=== PATIENT | female | born 1990 | race Caucasian/White ===

== ENCOUNTER 2023-04-22 16:00 | Outpatient (OUT) | payer BC, SELFPAY ==
[2023-04-22 16:34] LABS: Basophils Percent Auto 0.2 % (0.2-2.0); Eosinophils Absolute Auto 0.1 10^3/uL (0.0-0.7); Eosinophils Percent Auto 0.6 % (0.9-7.0); Hemoglobin 14.8 g/dL (12.0-16.0); Immature Granulocytes Abs Auto 0.02 10^3/uL (0.00-0.03); Immature Granulocytes Pct Auto 0.2 % (0.0-0.5); Lymphocytes Absolute Auto 2.9 10^3/uL (1.2-3.8); Mean Corpuscular HGB Conc 35.2 g/dL (29.9-35.2); Mean Corpuscular Hemoglobin 30.3 pg (26.7-34.0); Mean Corpuscular Volume 85.9 fL (81.0-99.0); Mean Platelet Volume 9.3 fL (9.5-13.5); Monocytes Absolute Auto 0.5 10^3/uL (0.3-0.8); Monocytes Percent Auto 6.1 % (1.7-12.0); Neutrophils Absolute Auto 4.7 10^3/uL (1.4-6.5); Neutrophils Percent Auto 57.9 % (43.0-75.0); Platelet Count 275 10^3/uL (150-450); Red Blood Count 4.89 10^6/uL (4.20-5.40); Red Cell Distribution Width 11.7 % (11.0-15.0); White Blood Count 8.2 10^3/uL (4.0-11.0)
[2023-04-22 17:05] LABS: HCG Quantitative <1 mIU/mL; Thyroid Stimulating Hormone 1.761 uIU/mL (0.358-3.740)
[2023-04-22 17:17] LABS: Estimated Average Glucose 97 mg/dL
[2023-04-22 17:18] LABS: Free T4 0.93 ng/dL (0.76-1.46)
[2023-04-24 04:07] LABS: FSH 6.3 mIU/mL (.); Luteinizing Hormone(LH) 3.5 mIU/mL (.)
[2023-04-27 15:09] LABS: Anti-Mullerian Hormone (AMH) 0.526 ng/mL (.)
[2023-04-28 14:07] LABS: DHEA, Serum 289 ng/dL (31-701)
== END 2023-04-22 16:01 | disposition home or self-care (01) ==
LOC: LAB 16:04
PROVIDERS: PCP Family Medicine; Visit Provider Obstetrics & Gynecology
DX: N92.6 Irregular menstruation, unspecified (principal); N92.1 Excessive and frequent menstruation with irregular cycle; G43.009 Migraine without aura, not intractable, without status migrainosus
CPT/HCPCS: 36415; 82626; 82627; 83001; 83002; 83036; 84439; 84443; 84702; 85025

== ENCOUNTER 2023-04-30 13:13 | Outpatient (OUT) | payer BC, SELFPAY ==
--- NOTE | 2023-04-30 12:50 | US_ITS ---
The [address] [address] Patient Name: LUIS PLATT MRN: [id number] date: 1990 Sex: F Assigned Patient Location: US Current Patient Location: US Accession/Order Number: [id number] Exam Date: 04/30/2023 12:50 Report Date: 04/30/2023 14:48 At the request of: LEMUEL JOHNSON Procedure: US pelvis w/ transvaginal EXAM: US pelvis w/ transvaginal HISTORY: PELVIC PAIN COMPARISON: None. TECHNIQUE: Real-time transabdominal and transvaginal imaging of the pelvis. Findings: The uterus measures 8.9 x 4.4 x 5.6 cm. Unremarkable parenchymal echotexture. No intrauterine mass. The endometrium is 0.8 cm thick. No fluid within the endometrial canal. The right and left ovaries measure 2.6 x 1.8 x 2.4 and 11.3 x 0.7 x 2.0 cm. There are unremarkable bilaterally. Blood flow is identified. No adnexal mass or free pelvic fluid. US/US pelvis w/ transvaginal IMPRESSION: 1. Unremarkable sonographic appearance of the pelvis for age. Electronically authenticated by: TATA NAVA Date: 04/30/2023 14:48
== END 2023-04-30 13:14 | disposition home or self-care (01) ==
LOC: US 13:13
PROVIDERS: PCP Family Medicine; Visit Provider Obstetrics & Gynecology
DX: N92.1 Excessive and frequent menstruation with irregular cycle (principal)
CPT/HCPCS: 76830; 76856

== ENCOUNTER 2023-05-29 21:17 | Outpatient (REF) | payer BC, SELFPAY ==
[2023-06-04 14:09] LABS: Age Gdln ACOG Testing Note (.); HPV Aptima Negative (Negative); IGP, Aptima HPV, rfx 16/18,45 Note (.)
== END 2023-05-29 21:18 | disposition home or self-care (01) ==
LOC: LAB 21:17
PROVIDERS: PCP Family Medicine; Visit Provider Physician Assistant
DX: Z12.4 Encounter for screening for malignant neoplasm of cervix (principal)
CPT/HCPCS: 87624; G0145

== ENCOUNTER 2023-05-30 14:58 | Outpatient (OUT) | payer BC, SELFPAY ==
[2023-06-01 05:05] LABS: Progesterone 2.4 ng/mL (.)
== END 2023-05-30 14:59 | disposition home or self-care (01) ==
LOC: LAB 14:59
PROVIDERS: PCP Family Medicine; Visit Provider Obstetrics & Gynecology
DX: N97.0 Female infertility associated with anovulation (principal)
CPT/HCPCS: 36415; 84144

== ENCOUNTER 2023-06-22 08:00 | Outpatient (OUT) | payer BC, SELFPAY | END 2023-06-22 08:01 | disposition home or self-care (01) | PROVIDERS: PCP Family Medicine; Visit Provider Obstetrics & Gynecology | DX: N97.9 Female infertility, unspecified (principal) | CPT/HCPCS: 36415; 84144 ==

== ENCOUNTER 2023-07-17 09:18 | Outpatient (OUT) | payer BC, SELFPAY | END 2023-07-17 09:19 | disposition home or self-care (01) | LOC: LAB 09:19 | PROVIDERS: PCP Family Medicine; Visit Provider Obstetrics & Gynecology | DX: N97.9 Female infertility, unspecified (principal) | CPT/HCPCS: 36415; 84144 ==

== ENCOUNTER 2023-08-13 08:03 | Outpatient (OUT) | payer BC, SELFPAY ==
[2023-08-14 09:11] LABS: Progesterone 6.7 ng/mL (.)
== END 2023-08-13 08:04 | disposition home or self-care (01) ==
LOC: LAB 08:04
PROVIDERS: PCP Family Medicine; Visit Provider Obstetrics & Gynecology
DX: N97.9 Female infertility, unspecified (principal)
CPT/HCPCS: 36415; 84144

== ENCOUNTER 2023-09-04 08:08 | Outpatient (OUT) | payer BC, SELFPAY ==
[2023-09-05 04:10] LABS: Progesterone 37.6 ng/mL (.)
== END 2023-09-04 08:09 | disposition home or self-care (01) ==
LOC: LAB 08:08
PROVIDERS: PCP Family Medicine; Visit Provider Obstetrics & Gynecology
DX: N97.9 Female infertility, unspecified (principal)
CPT/HCPCS: 36415; 84144

== ENCOUNTER 2023-10-02 08:42 | Outpatient (OUT) | payer BC, SELFPAY ==
--- OUTSIDE RECORDS SUMMARY | 2023-10-02 08:45 | XMS_ITS | CCD ---
Author Name Unknown Address [address] [facility] [address] [place] [address] Organization [facility] Care Team Providers Care Author Agent Name Role Phone ELIZABETH, DR HDEZ Attending Unavailable ELIZABETH, DR HDEZ Consulting Unavailable ELIZABETH, DR HDEZ Admitting Unavailable SRIKANTH, DR RACH Wadsworth Primary Care Unavailable SRIKANTH, DR RACH Wadsworth Attending Unavailable SRIKANTH, DR RACH Wadsworth Consulting Unavailable SRIKANTH, DR RAHC Wadsworth Primary Care Unavailable SRIKANTH, DR RACH Wadsworth Admitting Unavailable MD Rach Shen Primary Care Provider [phone] DO Leon Casey Attending Provider [phone] Leon Casey Attending Unavailable Leon Casey Admitting Unavailable Rach Shen Primary Care Unavailable Problems Active Problems Problem Classification Problem Date Documented Da te Episodic/Chronic Unclassified (2 sources) CONTACT W/AND (SUSP) EXPOS COVID-19; Translations: [CONTACT W/AND (SUSP) EXPOS COVID-19] Onset: 10-19-2021 Unclassified (1 source) Contact with and (suspected) exposure to potentially hazardous body fluids; Translations: [Contact with and (suspected) exposure to potentially hazardous body fluids] Onset: 04-25-2023 Viral infection (1 source) COVID-19; Translations: [COVID-19] Onset: 10-19-2021 Past or Other Problems Problem Classification Problem Date Documented Date Episodic/Chronic Immunizations and screening for infectious disease (1 source) Encounter for screening for human papillomavirus (HPV); Translations: [ENC SCREENING HUMAN PAPILLOMAVIRUS] Onset: 11-29-2021 Episodic Other screening for suspected conditions (not mental disorders or infectious disease) (4 sources) Encounter for screening for malignant neoplasm of cervix; Translations: [ENC SCREENING MALIG NEOPLASM CERV] Onset: 11-28-2021 Episodic Unclassified (1 source) CONTACT W/AND (SUSP) EXPOS COVID-19; Translations: [CONTACT W/AND (SUSP) EXPOS COVID-19] Onset: 10-17-2021 Results Test Name Value Interpretation Reference Range Facility Alanine Aminotransferaseon 0 04-25-2023 ALT [Catalytic activity/Vol] 17 U/L Normal [facility] Comment on above: Order Comment: Which is this, the Source or the Person with the Exposure?: EXPOSURE Source Medical Record: [id number] Exposed Result Comment: PERF ORMED BY: [place] [address] LIGHT LAMP CLEANER OSVALDO CRYSTAL M.D. Performed By: #### A LT #### [address] #### HIV SCREEN, HCV RX PCR, HBSAB, HBSAG #### [facility] , Alanine aminotransferase [En zymatic activity/volume] in Serum or PlasmaOrdered By: Leon Casey on 04-25-2023 ALT [Catalytic activity/Vol] 17 U/L [facility] HIV 1/O/2 Antigen/Antibodyon 04-25-2023 HIV Screen 4th Generation Non-Reactive Normal Non Reactive [facility] Comment on above: Order Comment: Which is this, the Source or the Person with the Exposure?: EXPOSURE Source Medical Record: [id number] Exposed Result Comment: HIV Negative HIV-1/HIV-2 antibodies and HIV-1 p24 antigen were NOT detected. There is no laboratory evidence of HIV infection. PERFORMED BY: [place] [address] LIGHT LAMP CLEANER OSVALDO CRYSTAL M.D. Performed By: #### A LT #### [facility] [address] [place] [address] [place] #### HIV SCREEN, HCV RX PCR, HBSAB, HBSAG #### [facility] , Hep C Ab wRfx to Qnt PCRon 0 04-25-2023 Hepatitis C Virus Antibody Non-Reactive Normal Non Reactive [facility] Comment on above: Order Comment: Which is this, the Source or the Person with the Exposure?: EXPOSURE Source Medical Record: [id number] Exposed Performed By: #### A LT #### [address] #### HIV SCREEN, HCV RX PCR, HBSAB, HBSAG #### [facility] , Interpretation Hepatitis C Normal . [facility] Comment on above: Order Comment: Which is this, the Source or the Person with the Exposure?: EXPOSURE Source Medical Record: [id number] Exposed Result Comment: Not infected with HCV unless early or acute infection is suspected (which may be delayed in an immunocompromised individual), or other evidence exists to indicate HCV infection. Performed By: #### A LT #### [place] [address] [place] #### HIV SCREEN, HCV RX PCR, HBSAB, HBSAG #### [facility] , Hepatitis B Surface Antibody on 04-25-2023 Hepatitis B Surface Antibody Reactive Normal . [facility] Comment on above: Order Comment: Which is this, the Source or the Person with the Exposure?: EXPOSURE Source Medical Record: [id number] Exposed Result Comment: Non Reactive: Inconsistent with immunity, less than 10 mIU/mL Reactive: Consistent with immunity, greater than 9.9 mIU/mL Performed By: #### A LT #### [place] [address] [place] #### HIV SCREEN, HCV RX PCR, HBSAB, HBSAG #### [facility] , Hepatitis B Surface Antigeno n 04-25-2023 HBsAg Screen Negative Normal Negative [facility] Comment on above: Order Comment: Which is this, the Source or the Person with the Exposure?: EXPOSURE Source Medical Record: [id number] Exposed Result Comment: Perf ormed at: - [facility] [address] [id number] Batter Mixer: Shai Marie PhD, Phone: [phone] Performed By: #### A LT #### [facility] [address] #### HIV SCREEN, HCV RX PCR, HBSAB, HBSAG #### [facility] , PAP ONLYon 12-05-2021 . . Normal [facility] Comment on above: Performed By: #### 4 [id number] #### [facility] [address] [place] [address] Dr. Vargas Joe DIAGNOSIS: Comment [facility] Comment on above: Result Comment: NEGA TIVE FOR INTRAEPITHELIAL LESION OR MALIGNANCY. Performed By: #### 4 [id number] #### [facility] [address] [place] [address] Dr. Vargas Joe Methodology: Comment [facility] Comment on above: Result Comment: This liquid based ThinPrep(R) pap test was screened with the use of an image guided system. Performed By: #### 4 [id number] #### [facility] [address] [place] [address] Dr. Vargas Joe Note: Comment [facility] Comment on above: Result Comment: The Pap smear is a screening test designed to aid in the detection of premalignant and malignant conditions of the uterine cervix. It is not a diagnostic procedure and should not be used as the sole means of detecting cervical cancer. Both false-positive and false-negative reports do occur. . Performed By: #### 4 [id number] #### [facility] [address] [place] [address] Dr. Vargas Joe Performed by: Comment Normal [facility] Comment on above: Result Comment: Denise Medellin, Historiography Professor (ASCP) Performed By: #### 4 [id number] #### [facility] [address] [place] [address] Dr. Vargas Joe Specimen adequacy: Comment [facility] Comment on above: Result Comment: Sati sfactory for evaluation. Endocervical and/or squamous metaplastic cells (endocervical component) are present. Performed By: #### 4 [id number] #### [facility] [address] [place], [place] [address] Dr. Vargas Joe Covid-19 PCR (CVDTB)on 09-24 SARS-CoV-2 (COVID-19) RNA LILIANA+probe Ql (Unsp spec) Detected Critically abnormal NOT DETECTED [facility] Comment on above: Result Comment: This test is not yet approved or cleared by the [place] FDA. When there are no FDA-approved or cleared tests available, and other criteria are met, FDA can make tests available under an emergency access mechanism called an Emergency Use Authorization (EUA). The EUA for this test is supported by the Document Management Consultant of Health and Human Service's (HHS's) declaration that circumstances exist to justify the emergency use of in vitro diagnostics for the detection and/or diagnosis of the virus that causes COVID-19. This EUA will remain in effect (meaning this test can be used) for the duration of the COVID-19 declaration justifying emergency of IVDs, unless it is terminated or revoked by FDA (after which the test may no longer be used). Performed By: #### C VDTB #### [facility] [address] [address] [address] Vargas Joe Auth for Release of Medical Recordson 03-10-2020 Auth for Release of Medical Records [id number] .[id number]:127 Normal [facility] Encounters Encounter Date Encounter Type Care Provider Facility Start: 04-25-2023 End: 04-25-2023 ambulatory MD Rach Shen Work Phone: [facility] Work Phone: Start: 04-25-2023 End: 04-25-2023 Patient encounter procedure MD Rach Shen Work Phone: [facility] [address] Work Phone: Start: 11-28-2021 End: 11-28-[address] LEMUEL JOHNSON Facility:H1 Start: 10-17-2021 End: 10-17-[address] RACH SHEN Facility:H1 Plan of Treatment Date Care Activity Detail Author Start: 04-25-2023 [facility] Payers Date Payer Category Payer Self-pay 2023 Worker's Compensation [id number] 1990 Unknown [id number] 1990 Unknown [id number] 1960 Unknown [id number] Unknown [id number] [id number] Social History Date Type Detail Facility Tobacco smoking stat [facility] Unknown if ever smoked [facility] Work Phone: Start: 1990 Sex Assigned At Female F [facility] Evaluation note Note Date & Type Note Facility Evaluation note No assessment information availa ble [facility] Work Phone: Summary Purpose Family History No Family History Records FoundNo Family History Records FoundNo Family History Records Found Advance Directives No Advanced Directives Records Found Advance Directive Response Recorded Date/ Time Advance Directives No April 25 023 12:07pm Chief Complaint and Reason for Visit Chief Complaint exposure Additional Source Comments INFORMATION SOURCE (unrecogn ized section and content) DATE CREATED AUTHOR 03/10/2020 [facility] DATE CREATED AUTHOR AUTHOR'S ORGANIZ ATION 09/13/2022 [facility] DATE CREATED AUTHOR AUTHOR'S ORGANIZ ATION 09/14/2023 [facility] Care Teams (unrecognized sec tion and content) Team Status: Active Member Role Status Dates Rach Shen MD Primary Care Provider Active Team Status: Inactive Member Role Status Dates Rach Shen MD Primary Care Provider Active DO GARY Larios Attending Provider Active Goals (unrecognized section and content) Goals may be documented in a n alternate section FOR RECORDS PERTAINING TO PATIENTS WHO ARE OR HAVE BEEN ENROLLED IN A CHEMICAL DEPENDENCY/SUBSTANCEABUSE PROGRAM, SOME INFORMATION MAY BE OMITTED. This clinical summary was aggregated from multiple sources. Caution should be exercised in using it in the provision of clinical care. This summary normalizes information from multiple sources, and as a consequence, information in this document may materially change the coding, format and clinical context of patient data. In addition, data may be omitted in some cases. CLINICAL DECISIONS SHOULD BE BASED ON THE PRIMARY CLINICAL RECORDS. [employer] provides no warranty or guarantee of the accuracy or completeness of information in this document.
[2023-10-03 04:07] LABS: Progesterone 25.3 ng/mL (.)
== END 2023-10-02 08:43 | disposition home or self-care (01) ==
LOC: LAB 08:43
PROVIDERS: PCP Family Medicine; Visit Provider Obstetrics & Gynecology
DX: N97.9 Female infertility, unspecified (principal)
CPT/HCPCS: 36415; 84144

== ENCOUNTER 2023-10-14 07:36 | Day surgery (SDC) | payer BC, SELFPAY ==
--- OUTSIDE RECORDS SUMMARY | 2023-10-14 07:38 | XMS_ITS | CCD ---
Author Name Unknown Address [address] [facility] [address] [place] [address] Organization [facility] Care Team Providers Care Information Technology Internship Name Role Phone ELIZABETH, DR HDEZ Attending Unavailable ELIZABETH, DR HDEZ Consulting Unavailable ELIZABETH, DR HDEZ Admitting Unavailable SRIKANTH, DR RACH Wadsworth Primary Care Unavailable SRIKANTH, DR RACH Wadsworth Attending Unavailable SRIKANTH, DR RACH Wadsworth Consulting Unavailable SRIKANTH, DR RACH Wadsworth Primary Care Unavailable SRIKANTH, DR RACH Wadsworth Admitting Unavailable MD Rach Shen Primary Care Provider DO Leon Casey Attending Provider [phone] Leon Casey Attending Unavailable Leon Casey Admitting [...] 04-25-2023 ALT [Catalytic activity/Vol] 17 U/L Normal [facility] Comment on above: Order Comment: Which is this, the Source or the Person with the Exposure?: EXPOSURE Source Medical Record: [id number] Exposed Result Comment: PERF ORMED BY: [place] [address] PATHOLOGIST FELLED SEAM OPERATOR OSVALDO CRYSTAL M.D. Performed By: #### A LT #### [address] #### HIV SCREEN, HCV RX PCR, HBSAB, HBSAG #### [facility] , Alanine aminotransferase [En zymatic activity/volume] in Serum or PlasmaOrdered By: Leon Casey on 04-25-2023 ALT [Catalytic activity/Vol] 17 U/L [facility] HIV 1/O/2 Antigen/Antibodyon 04-25-2023 HIV Screen 4th Generation Non-Reactive Normal Non Reactive [facility] Comment on above: Order Comment: Which is this, the Source or the Person with the Exposure?: EXPOSURE Source Medical Record: [id number] Exposed Result Comment: HIV Negative HIV-1/HIV-2 antibodies and HIV-1 p24 antigen were NOT detected. There is no laboratory evidence of HIV infection. PERFORMED BY: [place] [address] PATHOLOGIST FELLED SEAM OPERATOR OSVALDO CRYSTAL M.D. Performed By: #### A LT #### [facility] [address] [place] [address] [place] #### HIV SCREEN, HCV RX PCR, HBSAB, HBSAG #### [facility] , Hep C Ab wRfx to Qnt PCRon 0 04-25-2023 Hepatitis C Virus Antibody Non-Reactive Normal Non Reactive [facility] Comment on above: Order Comment: Which is this, the Source or the Person with the Exposure?: EXPOSURE Source Medical Record: [id number] Exposed Performed By: #### A LT #### [address] #### HIV SCREEN, HCV RX PCR, HBSAB, HBSAG #### [facility] , Interpretation Hepatitis C Normal . [facility] Comment on above: Order Comment: Which is this, the Source or the Person with the Exposure?: EXPOSURE Source Medical Record: [id number] Exposed Result Comment: Not infected with HCV unless early or acute infection is suspected (which may be delayed in an immunocompromised individual), or other evidence exists to indicate HCV infection. Performed By: #### A LT #### [place] [address] [place] #### HIV SCREEN, HCV RX PCR, HBSAB, HBSAG #### [facility] , Hepatitis B Surface Antibody on 04-25-2023 Hepatitis B Surface Antibody Reactive Normal . [facility] Comment on above: Order Comment: Which is this, the Source or the Person with the Exposure?: EXPOSURE Source Medical Record: [id number] Exposed Result Comment: Non Reactive: Inconsistent with immunity, less than 10 mIU/mL Reactive: Consistent with immunity, greater than 9.9 mIU/mL Performed By: #### A LT #### [place] [address] [place] #### HIV SCREEN, HCV RX PCR, HBSAB, HBSAG #### [facility] , Hepatitis B Surface Antigeno n 04-25-2023 HBsAg Screen Negative Normal Negative [facility] Comment on above: Order Comment: Which is this, the Source or the Person with the Exposure?: EXPOSURE Source Medical Record: [id number] Exposed Result Comment: Perf ormed at: - [facility] [address] [id number] [employer] Treating Unit Operator: Shai Marie PhD, Phone: [phone] Performed By: #### A LT #### [facility] [address] #### HIV SCREEN, HCV RX PCR, HBSAB, HBSAG #### [facility] , PAP ONLYon 12-05-2021 . . Normal [facility] Comment on above: Performed By: #### 4 [id number] #### [facility] [address] [place] [address] Dr. Vargas Joe DIAGNOSIS: Comment [facility] Comment on above: Result Comment: NEGA TIVE FOR INTRAEPITHELIAL LESION OR MALIGNANCY. Performed By: #### 4 [id number] #### [facility] [address] [place] [address] Dr. Vargas Joe Methodology: Comment [facility] Comment on above: Result Comment: This liquid based ThinPrep(R) pap test was screened with the use of an image guided system. Performed By: #### 4 [id number] #### [facility] [address] [place] [address] Dr. Vargas Joe Note: Comment [facility] Comment on above: Result Comment: The Pap smear is a screening test designed to aid in the detection of premalignant and malignant conditions of the uterine cervix. It is not a diagnostic procedure and should not be used as the sole means of detecting cervical cancer. Both false-positive and false-negative reports do occur. . Performed By: #### 4 [id number] #### [facility] [address] [place] [address] Dr. Vargas Joe Performed by: Comment Normal [facility] Comment on above: Result Comment: Denise Medellin, Bulb Planter (ASCP) Performed By: #### 4 [id number] #### [facility] [address] [place] [address] Dr. Vargas Joe Specimen adequacy: Comment [facility] Comment on above: Result Comment: Sati sfactory for evaluation. Endocervical and/or squamous metaplastic cells (endocervical component) are present. Performed By: #### 4 [id number] #### [facility] [address] [place], [place] [address] Dr. Vargas Joe Covid-19 PCR (CVDTB)on 09-24 SARS-CoV-2 (COVID-19) RNA LILIANA+probe Ql (Unsp spec) Detected Critically abnormal NOT DETECTED [facility] Comment on above: Result Comment: This test is not yet approved or cleared by the [place] FDA. When there are no FDA-approved or cleared tests available, and other criteria are met, FDA can make tests available under an emergency access mechanism called an Emergency Use Authorization (EUA). The EUA for this test is supported by the Chrisney of Health and Human Service's (HHS's) declaration [...] used). Performed By: #### C VDTB #### [facility] [address] [address] [address] Vargas Joe Auth for Release of Medical Recordson 03-10-2020 Auth for Release of Medical Records [id number]:127 Normal [facility] Encounters Encounter Date Encounter Type Care Provider Facility Start: 04-25-2023 End: 04-25-2023 ambulatory MD Rach Shen Work Phone: [facility] Work Phone: Start: 04-25-2023 End: 04-25-2023 Patient encounter procedure MD Rach Shen Work Phone: [facility] [address] Work Phone: Start: 11-28-2021 End: 11-28-[address] LEMUEL JOHNSON Facility:H1 Start: 10-17-2021 End: 10-17-[address] RACH SHEN Facility:H1 Plan of Treatment Date Care Activity Detail Author Start: 04-25-2023 [facility] Payers Date Payer Category Payer Self-pay 1990 Unknown [id number] 1990 Unknown [id number] 1960 Unknown [id number] Unknown [id number] Worker's Compensation [facility] [id number] Social History Date Type Detail Facility Tobacco smoking stat [facility] Unknown if ever smoked [facility] Work Phone: Start: 1990 Sex Assigned At Female F [facility] Evaluation note Note Date & Type Note Facility Evaluation note No assessment information availa ble [facility] Work Phone: Summary Purpose Family History No Family History Records FoundNo Family History Records FoundNo Family History Records Found Advance Directives No Advanced Directives Records Found Advance Directive Response Recorded Date/ Time Advance Directives No April 25 023 12:07pm Chief Complaint and Reason for Visit Chief Complaint exposure Additional Source Comments INFORMATION SOURCE (unrecogn ized section and content) DATE CREATED AUTHOR 03/10/2020 [facility] DATE CREATED AUTHOR AUTHOR'S ORGANIZ ATION 09/13/2022 [facility] DATE CREATED AUTHOR AUTHOR'S ORGANIZ ATION 10/05/2023 [facility] Care Teams (unrecognized sec tion and [...] BE BASED ON THE PRIMARY CLINICAL RECORDS. [employer]. provides no warranty or guarantee of the accuracy or completeness of information in this document.
[2023-10-14 08:17] LABS: HCG Quantitative <1 mIU/mL
--- NOTE | 2023-10-14 09:08 | FL_ITS ---
[address] [address] Patient Name: LUIS PLATT MRN: [id number] date: 1990 Sex: F Assigned Patient Location: LAB Current Patient Location: Accession/Order Number: [id number] Exam Date: 10/14/2023 08:00 Report Date: 10/14/2023 09:47 At the request of: LEMUEL JOHNSON Procedure: FL Hysterosal cath placement EXAMINATION: FL hysterosalpingography, FL Hysterosal cath placement HISTORY: Anovulation N97.0, Infertility N97.9 COMPARISON: No relevant comparison available. TECHNIQUE: Informed consent was obtained. A sterile vaginal speculum was introduced and, following cleansing of the cervix, a balloon-tipped catheter was inserted into the endometrial cavity. The procedure was then completed in the usual manner with water-soluble contrast. Standard level fluoroscopic mode of operation utilized. FINDINGS: FALLOPIAN TUBES: Patent fallopian tubes on the right. Occlusion of the left tube. ENDOMETRIAL CAVITY: No scarring, filling defects, or dilatation. OTHER: Negative. FL/FL Hysterosal cath placement IMPRESSION: Occlusion of the left fallopian tube Electronically authenticated by: KIKI PERERA Date: 10/14/2023 09:47
--- NOTE | 2023-10-14 09:08 | FL_ITS ---
[address] [address] Patient Name: LUIS PLATT MRN: [id number] date: 1990 Sex: F Assigned Patient Location: LAB Current Patient Location: Accession/Order Number: [id number] Exam Date: 10/14/2023 08:00 Report Date: 10/14/2023 09:47 At the request of: LEMUEL JOHNSON Procedure: FL hysterosalpingography EXAMINATION: FL hysterosalpingography, FL Hysterosal cath placement HISTORY: Anovulation N97.0, Infertility N97.9 COMPARISON: No relevant comparison available. TECHNIQUE: Informed consent was obtained. A sterile vaginal speculum was introduced and, following cleansing of the cervix, a balloon-tipped catheter was inserted into the endometrial cavity. The procedure was then completed in the usual manner with water-soluble contrast. Standard level fluoroscopic mode of operation utilized. FINDINGS: FALLOPIAN TUBES: Patent fallopian tubes on the right. Occlusion of the left tube. ENDOMETRIAL CAVITY: No scarring, filling defects, or dilatation. OTHER: Negative. FL/FL hysterosalpingography IMPRESSION: Occlusion of the left fallopian tube Electronically authenticated by: KIKI PERERA Date: 10/14/2023 09:47
== END 2023-10-14 09:15 | disposition home or self-care (01) ==
LOC: LAB 07:36
PROVIDERS: Radiology Diagnostic Radiology; PCP Family Medicine; Visit Provider Obstetrics & Gynecology
DX: N97.0 Female infertility associated with anovulation (principal); N97.9 Female infertility, unspecified; N97.1 Female infertility of tubal origin
CPT/HCPCS: 36415; 58340; 74740; 84702; Q9966

== ENCOUNTER 2023-11-22 13:54 | Outpatient (OUT) | payer BC, SELFPAY ==
--- OUTSIDE RECORDS SUMMARY | 2023-11-22 14:15 | XMS_ITS | CCD ---
Author Name Unknown Address [address] [facility] [address] [place] [address] Organization [facility] Care Team Providers Care Casino Host Name Role Phone ELIZABETH, DR HDEZ Attending Unavailable ELIZABETH, DR HDEZ Consulting Unavailable ELIZABETH, DR HDEZ Admitting Unavailable SRIKANTH, DR RACH Wadsworth Primary Care Unavailable SRIKANTH, DR RACH Wadsworth Attending Unavailable SRIKANTH, DR RACH Wadsworth Consulting Unavailable SRIKANTH, DR RACH Wadsworth Primary Care Unavailable SRIKANTH, DR RACH Wadsworth Admitting Unavailable MD Rach Shen Primary Care Provider [phone] DO Leon Casey Attending Provider [phone] Leon Casey Attending Unavailable Leon Casey Admitting [...] [Catalytic activity/Vol] 17 U/L Normal [facility] Comment on above: Order Comment: Which is this, the Source or the Person with the Exposure?: EXPOSURE Source Medical Record: [id number] Exposed Result Comment: PERF ORMED BY: [place] [address] PATHOLOGIST INFORMATION TECHNOLOGY DATA ANALYST OSVALDO CRYSTAL M.D. Performed By: #### A LT #### [address] #### HIV SCREEN, HCV RX PCR, HBSAB, HBSAG #### [facility] , Alanine aminotransferase [En zymatic activity/volume] in Serum or PlasmaOrdered By: Leon Casey on 04-25-2023 ALT [Catalytic activity/Vol] 17 U/L [facility] HIV 1/O/2 Antigen/Antibodyon 04-25-2023 HIV Screen 4th Generation Non-Reactive Normal Non Reactive [facility] Comment on above: Order Comment: Which is this, the Source or the Person with the Exposure?: EXPOSURE Source Medical Record: [id number] Exposed Result Comment: HIV Negative HIV-1/HIV-2 antibodies and HIV-1 p24 antigen were NOT detected. There is no laboratory evidence of HIV infection. PERFORMED BY: [place] [address] PATHOLOGIST INFORMATION TECHNOLOGY DATA ANALYST OSVALDO CRYSTAL M.D. Performed By: #### A LT #### [facility] [address] [place] [address] [place] #### HIV SCREEN, HCV RX PCR, HBSAB, HBSAG #### [facility] , Hep C Ab wRfx to Qnt PCRon 0 04-25-2023 Hepatitis C Virus Antibody Non-Reactive Normal Non Reactive [facility] Comment on above: Order Comment: Which is this, the Source or the Person with the Exposure?: EXPOSURE Source Medical Record: [id number] Exposed Performed By: #### A LT #### [address] #### HIV SCREEN, HCV RX PCR, HBSAB, HBSAG #### [facility] , Interpretation Hepatitis C Normal . [facility] Comment on above: Order Comment: Which is this, the Source or the Person with the Exposure?: EXPOSURE Source Medical Record: [id number] Exposed Result Comment: Not infected with HCV unless early or acute infection is suspected (which may be delayed in an immunocompromised individual), or other evidence exists to indicate HCV infection. Performed By: #### A LT #### [place] [address] [place] #### HIV SCREEN, HCV RX PCR, HBSAB, HBSAG #### [facility] , Hepatitis B Surface Antibody on 04-25-2023 Hepatitis B Surface Antibody Reactive Normal . [facility] Comment on above: Order Comment: Which is this, the Source or the Person with the Exposure?: EXPOSURE Source Medical Record: [id number] Exposed Result Comment: Non Reactive: Inconsistent with immunity, less than 10 mIU/mL Reactive: Consistent with immunity, greater than 9.9 mIU/mL Performed By: #### A LT #### [place] [address] [place] #### HIV SCREEN, HCV RX PCR, HBSAB, HBSAG #### [facility] , Hepatitis B Surface Antigeno n 04-25-2023 HBsAg Screen Negative Normal Negative [facility] Comment on above: Order Comment: Which is this, the Source or the Person with the Exposure?: EXPOSURE Source Medical Record: [id number] Exposed Result Comment: Perf ormed at: - [facility] [address] [id number] Drum Sander: Shai Marie PhD, Phone: [phone] Performed By: #### A LT #### [facility] [address] #### HIV SCREEN, HCV RX PCR, HBSAB, HBSAG #### [facility] , PAP ONLYon 12-05-2021 . . Normal [facility] Comment on above: Performed By: #### [id number] #### [facility] [address] [place] [address] Dr. Vargas Joe DIAGNOSIS: Comment [facility] Comment on above: Result Comment: NEGA TIVE FOR INTRAEPITHELIAL LESION OR MALIGNANCY. Performed By: #### 4 [id number] #### [facility] [place] [facility] [address] [place] [address] Dr. Vargas Joe Methodology: Comment [facility] Comment on above: Result Comment: This liquid based ThinPrep(R) pap test was screened with the use of an image guided system. Performed By: #### 4 [id number] #### [facility] [place] [facility] [address] [place] [address] Dr. Vargas Joe Note: Comment [facility] Comment on above: Result Comment: The Pap smear is a screening test designed to aid in the detection of premalignant and malignant conditions of the uterine cervix. It is not a diagnostic procedure and should not be used as the sole means of detecting cervical cancer. Both false-positive and false-negative reports do occur. . Performed By: #### 4 [id number] #### [facility] [place] [facility] [address] [place] [address] Dr. Vargas Joe Performed by: Comment Normal [facility] Comment on above: Result Comment: Denise Medellin, Envelope Press Operator (ASCP) Performed By: #### 4 [id number] #### [facility] [place] [facility] [address] [place] [address] Dr. Vargas Joe Specimen adequacy: Comment [facility] Comment on above: Result Comment: Sati sfactory for evaluation. Endocervical and/or squamous metaplastic cells (endocervical component) are present. Performed By: #### 4 [id number] #### [facility] [place] [facility] [address] [place], [place] [address] Dr. Vargas Joe Covid-19 PCR (CVDTB)on 09-24 SARS-CoV-2 (COVID-19) RNA LILIANA+probe Ql (Unsp spec) Detected Critically abnormal NOT DETECTED [facility] [place] Comment on above: Result Comment: This test is not yet approved or cleared by the [place] FDA. When there are no FDA-approved or cleared tests available, and other criteria are met, FDA can make tests available under an emergency access mechanism called an Emergency Use Authorization (EUA). The EUA for this test is supported by the [place] of Health and Human Service's (HHS's) declaration [...] used). Performed By: #### C VDTB #### [facility] [place] [facility] [address] [address] [address] Vargas Joe Auth for Release of Medical Recordson 03-10-2020 Auth for Release of Medical Records [id number] .[id number]:127 Normal [facility] Encounters Encounter Date Encounter Type Care Provider Facility Start: 04-25-2023 End: 04-25-2023 ambulatory MD Rach Shen Work Phone: [facility] Work Phone: Start: 04-25-2023 End: 04-25-2023 Patient encounter procedure MD Rach Shen Work Phone: [facility] [address] Work Phone: Start: 11-28-2021 End: 11-28-[address] LEMUEL JOHNSON Facility:[facility]1 Start: 10-17-2021 End: 10-17-[address] RACH SHEN Facility:[facility]1 Plan of Treatment Date Care Activity Detail Author Start: 04-25-2023 [facility] Payers Date Payer Category Payer Self-pay 1990 Unknown [id number] 1990 Unknown [id number] 1960 Unknown [id number] Unknown [id number] Worker's Compensation [facility] [place] [id number] Social History Date Type Detail Facility Tobacco smoking stat [facility] Unknown if ever smoked [facility] Work Phone: Start: 1990 Sex Assigned At Female F [facility] Evaluation note Note Date & Type Note Facility Evaluation note No assessment information availa ble [facility] Work Phone: Summary Purpose Family History No Family History Records FoundNo Family History Records FoundNo Family History Records Found Advance Directives No Advanced Directives Records Found Advance Directive Response Recorded Date/ Time Advance Directives No April 25 023 12:07pm Chief Complaint and Reason for Visit Chief Complaint exposure Additional Source Comments INFORMATION SOURCE (unrecogn ized section and content) DATE CREATED AUTHOR 03/10/2020 [facility] DATE CREATED AUTHOR AUTHOR'S ORGANIZ ATION 09/13/2022 [facility] DATE CREATED AUTHOR AUTHOR'S ORGANIZ ATION 10/05/2023 [facility] Care Teams (unrecognized sec tion and content) [...] BE BASED ON THE PRIMARY CLINICAL RECORDS. [facility]. provides no warranty or guarantee of the accuracy or completeness of information in this document.
[2023-11-23 04:07] LABS: Progesterone 9.7 ng/mL (.)
== END 2023-11-22 13:55 | disposition home or self-care (01) ==
LOC: LAB 13:55
PROVIDERS: PCP Family Medicine; Visit Provider Obstetrics & Gynecology
DX: N97.9 Female infertility, unspecified (principal)
CPT/HCPCS: 36415; 84144

== ENCOUNTER 2023-12-18 10:29 | Outpatient (OUT) | payer BC, SELFPAY ==
[2023-12-19 04:08] LABS: Progesterone 9.5 ng/mL (.)
== END 2023-12-18 10:30 | disposition home or self-care (01) ==
LOC: LAB 10:30
PROVIDERS: PCP Family Medicine; Visit Provider Obstetrics & Gynecology
DX: N97.9 Female infertility, unspecified (principal)
CPT/HCPCS: 36415; 84144

== ENCOUNTER 2024-01-02 09:39 | Outpatient (OUT) | payer BC, SELFPAY ==
--- OUTSIDE RECORDS SUMMARY | 2024-01-02 10:00 | XMS_ITS | CCD ---
Author Organization [facility] Care Team Providers Care Air Traffic Control Specialist Name Role Phone DR LEMUEL JOHNSON Attending Unavailable ELIZABETH, DR HDEZ Consulting Unavailable ELIZABETH, DR HDEZ Admitting Unavailable SRIKANTH, DR RACH Wadsworth Primary Care Unavailable SRIKANTH, DR RACH Wadsworth Attending Unavailable SRIKANTH, DR RACH Wadsworth Consulting Unavailable SRIKANTH, DR RACH Wadsworth Primary Care Unavailable SRIKANTH, DR RACH Wadsworth Admitting Unavailable MD Rach Shen Primary Care Provider [phone] DO Leon Casey Attending Provider Carm[facility] Attending Unavailable [facility] Ad[facility] Unavailable Rach Shen Primary Care Unavailable [...] ALT [Catalytic activity/Vol] 17 U/L Normal [facility] Comment on above: Order Comment: Which is this, the Source or the Person with the Exposure?: EXPOSURE Source Medical Record: [id number] Exposed Result Comment: PERF ORMED BY: [place] [address] PATHOLOGIST QUOTER OSVALDO CRYSTAL M.D. Performed By: #### A LT #### [address] #### HIV SCREEN, HCV RX PCR, HBSAB, HBSAG #### [facility] , Alanine aminotransferase [En zymatic activity/volume] in Serum or PlasmaOrdered By: Leon Casey on 04-25-2023 ALT [Catalytic activity/Vol] 17 U/L [facility] HIV 1/O/2 Antigen/Antibodyon 04-25-2023 HIV Screen 4th Generation Non-Reactive Normal Non Reactive [facility] Comment on above: Order Comment: Which is this, the Source or the Person with the Exposure?: EXPOSURE Source Medical Record: [id number] Exposed Result Comment: HIV Negative HIV-1/HIV-2 antibodies and HIV-1 p24 antigen were NOT detected. There is no laboratory evidence of HIV infection. PERFORMED BY: [place] [address] PATHOLOGIST QUOTER OSVALDO CRYSTAL M.D. Performed By: #### A LT #### [address] #### HIV SCREEN, HCV RX PCR, HBSAB, HBSAG #### [facility] , Hep C Ab wRfx to Qnt PCRon 0 04-25-2023 Hepatitis C Virus Antibody Non-Reactive Normal Non Reactive [facility] Comment on above: Order Comment: Which is this, the Source or the Person with the Exposure?: EXPOSURE Source Medical Record: [id number] Exposed Performed By: #### A LT #### [address] #### HIV SCREEN, HCV RX PCR, HBSAB, HBSAG #### [facility] , Interpretation Hepatitis C Normal . [facility] Comment on above: Order Comment: Which is this, the Source or the Person with the Exposure?: EXPOSURE Source Medical Record: [id number] Exposed Result Comment: Not infected with HCV unless early or acute infection is suspected (which may be delayed in an immunocompromised individual), or other evidence exists to indicate HCV infection. Performed By: #### A LT #### [address] #### HIV SCREEN, HCV RX PCR, HBSAB, HBSAG #### [facility] , Hepatitis B Surface Antibody on 04-25-2023 Hepatitis B Surface Antibody Reactive Normal . [facility] Comment on above: Order Comment: Which is this, the Source or the Person with the Exposure?: EXPOSURE Source Medical Record: [id number] Exposed Result Comment: Non Reactive: Inconsistent with immunity, less than 10 mIU/mL Reactive: Consistent with immunity, greater than 9.9 mIU/mL Performed By: #### A LT #### [address] #### HIV SCREEN, HCV RX PCR, HBSAB, HBSAG #### [facility] , Hepatitis B Surface Antigeno n 04-25-2023 HBsAg Screen Negative Normal Negative [facility] Comment on above: Order Comment: Which is this, the Source or the Person with the Exposure?: EXPOSURE Source Medical Record: [id number] Exposed Result Comment: Perf ormed at: [facility] [address] [id number] Shipping And Receiving Assistant: Shai Marie PhD, Phone: [phone] Performed By: #### A LT #### [address] [place] [address] [place] #### HIV SCREEN, HCV RX PCR, HBSAB, HBSAG #### [facility] , PAP ONLYon 12-05-2021 . . Normal [facility] Comment on above: Performed By: #### 4 [id number] #### [facility] [address] [place] [address] Dr. Vargas Joe DIAGNOSIS: Comment Normal [facility] Comment on above: Result Comment: NEGA TIVE FOR INTRAEPITHELIAL LESION OR MALIGNANCY. Performed By: #### 4 [id number] #### [facility] [address] [place] [address] Dr. Vargas Joe Methodology: Comment [facility] Comment on above: Result Comment: This liquid based ThinPrep(R) pap test was screened with the use of an image guided system. Performed By: #### 4 [id number] #### [facility] [address] [place] [address] Dr. Vargas Joe Note: Comment [facility] Comment on above: Result Comment: The Pap smear is a screening test designed to aid in the detection of premalignant and malignant conditions of the uterine cervix. It is not a diagnostic procedure and should not be used as the sole means of detecting cervical cancer. Both false-positive and false-negative reports do occur. . Performed By: #### 4 [id number] #### [facility] [address] [place] [address] Dr. Vargas Joe Performed by: Comment Normal [facility] Comment on above: Result Comment: Denise Medellin, Material Mover (ASCP) Performed By: #### 4 [id number] #### [facility] [address] [place] [address] Dr. Vargas Joe Specimen adequacy: Comment [facility] Comment on above: Result Comment: Sati sfactory for evaluation. Endocervical and/or squamous metaplastic cells (endocervical component) are present. Performed By: #### 4 [id number] #### [facility] [address] [place] [address] Dr. Vargas Joe Covid-19 PCR (CVDTBH)on 09-24 SARS-CoV-2 (COVID-19) RNA LILIANA+probe Ql (Unsp spec) Detected Critically abnormal NOT DETECTED [facility] Comment on above: Result Comment: This test is not yet approved or cleared by the [place] FDA. When there are no FDA-approved or cleared tests available, and other criteria are met, FDA can make tests available under an emergency access mechanism called an Emergency Use Authorization (EUA). The EUA for this test is supported by the [place] of Health and Human Service's (HHS's) declaration [...] longer be used). Performed By: #### C [facility] #### [facility] [address] [place] [address] Dr. Vargas Joe Auth for Release of Medical Recordson 03-10-2020 Auth for Release of Medical Records [id number] .[id number]:127 Normal [facility] Encounters Encounter Date Encounter Type Care Provider Facility Start: 04-25-2023 End: 04-25-2023 ambulatory MD Rach Shen Work Phone: [facility] Work Phone: Start: 04-25-2023 End: 04-25-2023 Patient encounter procedure MD Rach Shen Work Phone: [facility] [address] Work Phone: Start: 11-28-2021 End: 11-28-[address] LEMUEL JOHNSON Facility:H1 Start: 10-17-2021 End: 10-17-[address] RACH SHEN Facility:[facility]1 Plan of Treatment Date Care Activity Detail Author Start: 04-25-2023 [facility] Payers Date Payer Category Payer Self-pay 2023 Worker's Compensation [id number] 1990 Unknown [id number] 1990 Unknown [id number] 1960 Unknown [id number] Unknown [id number] Social History Date Type Detail Facility Tobacco smoking stat [facility] Unknown if ever smoked [facility] Work Phone: Start: 1990 Sex Assigned At Female F [facility] Evaluation note Note Date & Type Note Facility Evaluation note No assessment information availa ble [facility] Work Phone: Summary Purpose Family History No Family History Records FoundNo Family History Records FoundNo Family History Records Found Advance Directives No Advanced Directives Records Found Advance Directive Response Recorded Date/ Time Advance Directives No April 25 023 12:07pm Chief Complaint and Reason for Visit Chief Complaint exposure Additional Source Comments INFORMATION SOURCE (unrecogn ized section and content) DATE CREATED AUTHOR 03/10/2020 [facility] DATE CREATED AUTHOR AUTHOR'S ORGANIZ ATION 09/13/2022 [facility] DATE CREATED AUTHOR AUTHOR'S ORGANIZ ATION 11/23/2023 [facility] Care Teams (unrecognized sec tion and content) [...] BE BASED ON THE PRIMARY CLINICAL RECORDS. [facility]. provides no warranty or guarantee of the accuracy or completeness of information in this document.
[2024-01-02 10:20] LABS: Basophils Percent Auto 0.3 % (0.2-2.0); Eosinophils Absolute Auto 0.1 10^3/uL (0.0-0.7); Eosinophils Percent Auto 0.5 % (0.9-7.0); Hematocrit 43.3 % (36.0-48.0); Hemoglobin 14.6 g/dL (12.0-16.0); Immature Granulocytes Abs Auto 0.05 10^3/uL (0.00-0.03); Immature Granulocytes Pct Auto 0.4 % (0.0-0.5); Lymphocytes Absolute Auto 2.5 10^3/uL (1.2-3.8); Lymphocytes Percent Auto 21.7 % (20.5-60.0); Mean Corpuscular HGB Conc 33.7 g/dL (29.9-35.2); Mean Corpuscular Volume 89.1 fL (81.0-99.0); Mean Platelet Volume 9.1 fL (9.5-13.5); Monocytes Absolute Auto 0.8 10^3/uL (0.3-0.8); Monocytes Percent Auto 6.6 % (1.7-12.0); Neutrophils Absolute Auto 8.1 10^3/uL (1.4-6.5); Neutrophils Percent Auto 70.5 % (43.0-75.0); Platelet Count 282 10^3/uL (150-450); Red Blood Count 4.86 10^6/uL (4.20-5.40); Red Cell Distribution Width 11.9 % (11.0-15.0); White Blood Count 11.5 10^3/uL (4.0-11.0)
[2024-01-02 11:08] LABS: Anion Gap 12.2; BUN Creatinine Ratio 20.3; Calcium 9.4 mg/dL (8.5-10.1); Carbon Dioxide 25.9 mmol/L (21.0-32.0); Chloride 105 mmol/L (98-107); Estimated GFR (African America >60 (>=60); Estimated GFR (Non-African Ame >60 (>=60); Glucose 100 mg/dL (74-106); Potassium 4.1 mmol/L (3.5-5.1); Sodium 139 mmol/L (136-145); Thyroid Stimulating Hormone 1.332 uIU/mL (0.358-3.740)
== END 2024-01-02 09:40 | disposition home or self-care (01) ==
LOC: LAB 09:41
PROVIDERS: PCP Family Medicine; Visit Provider Family Medicine
DX: Z00.00 Encounter for general adult medical examination without abnormal findings (principal)
CPT/HCPCS: 36415; 80048; 84443; 85025

== ENCOUNTER 2024-01-13 07:37 | Outpatient (OUT) | payer BC, SELFPAY ==
--- OUTSIDE RECORDS SUMMARY | 2024-01-13 07:40 | XMS_ITS | CCD ---
Author Organization [facility] Care Team Providers Care Orthopedic Assistant Name Role Phone DR LEMUEL JOHNSON Attending Unavailable ELIZABETH, DR HDEZ Consulting Unavailable ELIZABETH, DR HDEZ Admitting Unavailable SRIKANTH, DR RACH Wadsworth Primary Care Unavailable SRIKANTH, DR RACH Wadsworth Attending Unavailable SRIKANTH, DR RACH Wadsworth Consulting Unavailable SRIKANTH, DR RACH Wadsworth Primary Care Unavailable SRIKANTH, DR RACH Wadsworth Admitting Unavailable MD Rach Shen Primary Care Provider DO Leon Casey Attending Provider Carm[facility] Attending Unavailable [facility] Admitting Unavailable Rach Shen Primary Care [...] 04-25-2023 ALT [Catalytic activity/Vol] 17 U/L Normal [facility] Comment on above: Order Comment: Which is this, the Source or the Person with the Exposure?: EXPOSURE Source Medical Record: [id number] Exposed Result Comment: PERF ORMED BY: [place] [address] PATHOLOGIST P D DRIVER OSVALDO CRYSTAL M.D. Performed By: #### A LT #### [address] #### HIV SCREEN, HCV RX PCR, HBSAB, HBSAG #### [facility] , Alanine aminotransferase [En zymatic activity/volume] in Serum or PlasmaOrdered By: Leon Casey on 04-25-2023 ALT [Catalytic activity/Vol] 17 U/L [facility] HIV 1/O/2 Antigen/Antibodyon 04-25-2023 HIV Screen 4th Generation Non-Reactive Normal Non Reactive [facility] Comment on above: Order Comment: Which is this, the Source or the Person with the Exposure?: EXPOSURE Source Medical Record: [id number] Exposed Result Comment: HIV Negative HIV-1/HIV-2 antibodies and HIV-1 p24 antigen were NOT detected. There is no laboratory evidence of HIV infection. PERFORMED BY: [place] [address] PATHOLOGIST P D DRIVER OSVALDO CRYSTAL M.D. Performed By: #### A LT #### [address] #### HIV SCREEN, HCV RX PCR, HBSAB, HBSAG #### [facility] , Hep C Ab wRfx to Qnt PCRon 0 04-25-2023 Hepatitis C Virus Antibody Non-Reactive Normal Non Reactive [facility] Comment on above: Order Comment: Which is this, the Source or the Person with the Exposure?: EXPOSURE Source Medical Record: [id number] Exposed Performed By: #### A LT #### [address] #### HIV SCREEN, HCV RX PCR, HBSAB, HBSAG #### [facility] , Interpretation Hepatitis C Normal . [facility] Comment on above: Order Comment: Which is this, the Source or the Person with the Exposure?: EXPOSURE Source Medical Record: [id number] Exposed Result Comment: Not infected with HCV unless early or acute infection is suspected (which may be delayed in an immunocompromised individual), or other evidence exists to indicate HCV infection. Performed By: #### A LT #### [address] #### HIV SCREEN, HCV RX PCR, HBSAB, HBSAG #### [facility] , Hepatitis B Surface Antibody on 04-25-2023 Hepatitis B Surface Antibody Reactive Normal . [facility] Comment on above: Order Comment: Which is this, the Source or the Person with the Exposure?: EXPOSURE Source Medical Record: [id number] Exposed Result Comment: Non Reactive: Inconsistent with immunity, less than 10 mIU/mL Reactive: Consistent with immunity, greater than 9.9 mIU/mL Performed By: #### A LT #### [address] #### HIV SCREEN, HCV RX PCR, HBSAB, HBSAG #### [facility] , Hepatitis B Surface Antigeno n 04-25-2023 HBsAg Screen Negative Normal Negative [facility] Comment on above: Order Comment: Which is this, the Source or the Person with the Exposure?: EXPOSURE Source Medical Record: [id number] Exposed Result Comment: Perf ormed at: [facility] [address] [id number] Maintainability Engineer: Shai Marie PhD, Phone: [phone] Performed By: #### A LT #### [address] [place] [address] [place] #### HIV SCREEN, HCV RX PCR, HBSAB, HBSAG #### [facility] , PAP ONLYon 12-05-2021 . . Normal [facility] Comment on above: Performed By: #### [id number] #### [facility] [address] [place] [address] Dr. Vargas Joe DIAGNOSIS: Comment Normal [facility] Comment on above: Result Comment: NEGA TIVE FOR INTRAEPITHELIAL LESION OR MALIGNANCY. Performed By: #### 4 [id number] #### [facility] [address] [place] [address] Dr. Vargas Joe Methodology: Comment [facility] Comment on above: Result Comment: This liquid based ThinPrep(R) pap test was screened with the use of an image guided system. Performed By: #### 4 [id number] #### [facility] [address] [place] [address] Dr. Vargas Joe Note: Comment [facility] Comment on above: Result Comment: The Pap smear is a screening test designed to aid in the detection of premalignant and malignant conditions of the uterine cervix. It is not a diagnostic procedure and should not be used as the sole means of detecting cervical cancer. Both false-positive and false-negative reports do occur. . Performed By: #### 4 [id number] #### [facility] [address] [place] [address] Dr. Vargas Joe Performed by: Comment Normal [facility] Comment on above: Result Comment: Denise Medellin, Produce Department Manager (ASCP) Performed By: #### 4 [id number] #### [facility] [address] [place] [address] Dr. Vargas Joe Specimen adequacy: Comment [facility] Comment on above: Result Comment: Sati sfactory for evaluation. Endocervical and/or squamous metaplastic cells (endocervical component) are present. Performed By: #### 4 [id number] #### [facility] [address] [place] [address] Dr. Vargas Joe Covid-19 PCR (CVDTBH)on 09-24 SARS-CoV-2 (COVID-19) RNA LILIANA+probe Ql (Unsp spec) Detected Critically abnormal NOT DETECTED [facility] Comment on above: Result Comment: This test is not yet approved or cleared by the [place] FDA. When there are no FDA-approved or cleared tests available, and other criteria are met, FDA can make tests available under an emergency access mechanism called an Emergency Use Authorization (EUA). The EUA for this test is supported by the [place] of Health and Human Service's (HHS's) declaration [...] longer be used). Performed By: #### C [facility] #### [facility] [address] [place] [address] Dr. Vargas Joe Auth for Release of Medical Recordson 03-10-2020 Auth for Release of Medical Records [id number]:127 Normal [facility] Encounters Encounter Date Encounter Type Care Provider Facility Start: 04-25-2023 End: 04-25-2023 ambulatory MD Rach Shen Work Phone: [facility] Work Phone: Start: 04-25-2023 End: 04-25-2023 Patient encounter procedure MD Rach Shen Work Phone: [facility] [address] Work Phone: Start: 11-28-2021 End: 11-28-[address] LEMUEL JOHNSON Facility:[facility] Start: 10-17-2021 End: 10-17-[address] RACH SHEN Facility:[facility] Plan of Treatment Date Care Activity Detail Author Start: 04-25-2023 [facility] Payers Date Payer Category Payer Self-pay 2023 Worker's Compensation [id number] 1990 Unknown [id number] 1990 Unknown [id number] 1960 Unknown [id number] Unknown [id number] Social History Date Type Detail Facility Tobacco smoking stat [facility] Unknown if ever smoked [facility] Work Phone: Start: 1990 Sex Assigned At Female F [facility] Evaluation note Note Date & Type Note Facility Evaluation note No assessment information availa ble [facility] Work Phone: Summary Purpose Family [...] section and content) DATE CREATED AUTHOR 03/10/2020 [facility] DATE CREATED AUTHOR AUTHOR'S ORGANIZ ATION 09/13/2022 [facility] DATE CREATED AUTHOR AUTHOR'S ORGANIZ ATION 11/23/2023 [facility] Care Teams (unrecognized sec tion [...] BE BASED ON THE PRIMARY CLINICAL RECORDS. [facility] [employer] [facility]. provides no warranty or guarantee of the accuracy or completeness of information in this document.
[2024-01-14 08:11] LABS: Progesterone 13.8 ng/mL (.)
== END 2024-01-13 07:38 | disposition home or self-care (01) ==
LOC: LAB 07:38
PROVIDERS: PCP Family Medicine; Visit Provider Obstetrics & Gynecology
DX: N97.9 Female infertility, unspecified (principal)
CPT/HCPCS: 36415; 84144

== ENCOUNTER 2025-05-05 18:51 | Outpatient (REF) | payer BC, SELFPAY ==
--- OUTSIDE RECORDS SUMMARY | 2025-05-05 13:00 | XMS_ITS | Encounter Summary ---
Author Organization [facility] Address [address] [place] [address] Care Team Providers Care Ring Sorter Name Role Phone Rach Shen MD Primary Care Provider [phone] Reason for Visit * Reason Comments Gynecologic Exam Encounter Details Date Type Department Care Team (Late st Contact Info) Description 05/05/2025 1:00 PM EDT Office Visit [facility] [address] [place] [address] Jayla Hector PA [address] [place], [facility] Well woman exam with routine gynecological exam Social History Tobacco Use Types Packs/Day Years Used Date Smoking Tobacco: Never Assessed Comments No Sex and Gender Information Value Date Recorded Sex Assigned at Not on file Legal Sex Female 6:54 PM EDT Gender Identity Not on file Sexual Orientation Not on file documented as of this encounter Last Filed Vital Signs Vital Sign Reading Time Taken Comments Blood Pressure 122/70 05/05/2025 1:12 PM EDT Pulse - - Temperature - - Respiratory Rate - - Oxygen Saturation - - Inhaled Oxygen Concentration - - Weight 93.4 kg (206 lb) 05/05/2025 1:12 PM EDT Height - - Body Mass Index 32.26 05/29/2023 3:22 PM EDT documented in this encounter Progress Notes * VANE Chavez - 05/05/2025 1:00 PM EDT Reason for Appointment: Patient ID: Alexi Dewitt is a 34 y.o. female who presents for Gynecologic Exam Patient presents today for Annual Exam. MEDICATIONS Current Outpatient Medications Medication Instructions escitalopram (LEXAPRO) 10 mg, Daily letrozole (Femara) 2.5 MG chemo tablet TAKE 3 TABLETS (7.5 MG TOTAL) BY MOUTH DAILY FOR 5 DAYS. TAKE DAYS 3-7 OF CYCLE medroxyPROGESTERone (PROVERA) 10 mg, Oral, Daily, Take 1 tablet by mouth daily for 7 days beginningon day 16 of the menstrual cycle. SUMAtriptan (Imitrex) 100 MG tablet TAKE ONE TABLET BY MOUTH NEEDED FOR MIGRAINE ALLERGIES No Known Allergies PROBLEMS Active Ambulatory Problems Diagnosis Date Noted No Active Ambulatory Problems Resolved Ambulatory Problems Diagnosis Date Noted No Resolved Ambulatory Problems No Additional Past Medical History HISTORY PAST MEDICAL HISTORY SOCIAL HISTORY No past medical history on file. Social History Tobacco Use Smoking status: Not on file Smokeless tobacco: Not on file Substance Use Topics Alcohol use: Not on file Drug use: Not on file FAMILY HISTORY No family history on file. SURGICAL HISTORY History reviewed. No pertinent surgical history. REVIEW OF SYSTEMS Review of Systems: Review of Systems Constitutional: Negative. HENT: Negative. Eyes: Negative. Respiratory: Negative. Cardiovascular: Negative. Gastrointestinal: Negative. Genitourinary: Negative. Musculoskeletal: Negative. Skin: Negative. Neurological: Negative. All other systems reviewed and are negative. Hematological: Negative. Endocrine: Negative. Allergic/Immunologic: Negative. OBJECTIVE Objective: Physical Exam Constitutional: Appearance: Normal appearance. She is well-developed. Genitourinary: Vulva normal. Right Adnexa: not tender and no mass present. Left Adnexa: not tender and no mass present. No cervical discharge. Breasts: Breasts are soft. Right: Normal. Left: Normal. HENT: Head: Normocephalic. Nose: Nose normal. Mouth/Throat: Mouth: Mucous membranes are moist. Cardiovascular: Rate and Rhythm: Normal rate and regular rhythm. Pulmonary: Effort: Pulmonary effort is normal. Breath sounds: Normal breath sounds. Abdominal: General: Bowel sounds are normal. There is no distension. Palpations: Abdomen is soft. Tenderness: There is no abdominal tenderness. There is no guarding or rebound. Musculoskeletal: General: No swelling. Normal range of motion. Cervical back: Normal range of motion. Right lower leg: No edema. Left lower leg: No edema. Neurological: General: No focal deficit present. Mental Status: She is alert and oriented to person, place, and time. Skin: General: Skin is warm and dry. Psychiatric: Mood and Affect: Mood normal. Behavior: Behavior normal. Vitals and nursing note reviewed. Exam conducted with a scholarship counselor present. Vitals: Estimated body mass index is 28.52 kg/m?? as calculated from the following: Height as of 05/29/23: 5' 7 . Weight as of 05/29/23: 182 lb 1.9 oz. BP: No LMP recorded. ASSESSMENT & PLAN ICD-10-CM 1. Well woman exam with routine gynecological exam Z01.419 Pap Smear HPV DNA probe, amplified Annual Exam: Patient presents today for an annual exam. Patient states she is doing well and has no complaints. Pap was obtained without difficulty. Orders Placed This Encounter Procedures HPV DNA probe, amplified Follow Up: Patient is to return in one year for annual unless needed otherwise. Documented by Janette Whitehead MA on behalf of: VANE Chavez documented in this encounter Plan of Treatment Upcoming Encounters Date Type Department Care Team (Late st Contact Info) Description 05/11/2026 10:00 AM EDT Procedure Visit [facility] [address] [place] [address] Jayla Hector PA [address] [place] [address] Scheduled Orders Name Type Priority Associated Diagnoses Orde r Schedule Pap Smear Pathology and Cytology Routine Well woman exam with routine gynecological exam Ordered: 05/05/2025 HPV DNA probe, amplified Microbiology Routine Well woman exam with routine gynecological exam Ordered: 05/05/2025 documented as of this encounter Visit Diagnoses Diagnosis Well woman exam with routine gynecological exam Routine gynecological examination documented in this encounter Care Teams Ring Sorter Relationship Specialty Start Date End Date Rach Shen MD [address] [facility] [place] [address] PCP - General Family Medicine 04/22/23 documented as of this encounter
--- OUTSIDE RECORDS SUMMARY | 2025-05-05 18:54 | XMS_ITS | Clinical Summary ---
Author Organization [facility] Address [address] [place] [address] Care Team Providers Care Cripple Worker Name Role Phone Rach Shen MD Primary Care Provider [phone] Allergies No known active allergies Medications SUMAtriptan (Imitrex) 100 MG tablet TAKE ONE TABLET BY MOUTH NEEDED FOR MIGRAINE 3 Active medroxyPROGESTER one (Provera) 10 MG tabletIndication s:Irregular menses,Menorrhag ia with irregular cycle,Migraine without aura and without status migrainosus, not intractable Take 1 tablet (10 mg) by mouth in the morning. Take 1 tablet by mouth daily for 7 days beginning on day 16 of the menstrual cycle.. 14 tablet 3 Active letrozole (Femara) 2.5 MG chemo tablet TAKE 3 TABLETS (7.5 MG TOTAL) BY MOUTH DAILY FOR 5 DAYS. TAKE DAYS 3-7 OF CYCLE 4 Active escitalopram (Lexapro) 10 MG tablet Take 10 mg by mouth Daily 4 Active Encounters Date Type Department Care Team Description 05/05/2025 1:00 [place] [id number] Jayla Hector PA Well woman exam with routine gynecological exam 05/05/2025 [place] [phone] Jayla Hector PA from Last 3 Months Social History Tobacco Use Types Packs/Day Years Used Date Smoking Tobacco: Never Assessed Comments No Sex and Gender Information Value Date Recorded Sex Assigned at Not on file Legal Sex Female 6:54 PM EDT Gender Identity Not on file Sexual Orientation Not on file Last Filed Vital Signs Vital Sign Reading Time Taken Comments Blood Pressure 122/70 05/05/2025 1:12 PM EDT Pulse - - Temperature - - Respiratory Rate - - Oxygen Saturation - - Inhaled Oxygen Concentration - - Weight 93.4 kg (206 lb) 05/05/2025 1:12 PM EDT Height 170.2 cm (5' 7 ) 05/29/2023 3:22 PM EDT Body Mass Index 32.26 05/29/2023 3:22 PM EDT Plan of Treatment Upcoming Encounters Date Type Department Care Team (Late st Contact Info) Description 05/11/2026 10:00 AM EDT Procedure Visit [facility] [address] [place] [phone] Jayla Hector PA [address] [place] [address] Health Maintenance Due Date Last Done Comments HPV/Cotest 2019 Influenza Vaccine (#1) 2025 3, 06/26/2022, 08/22/2020, Additional history exists Cervical Cancer Screening 05/29/2026 Pap Smear 05/29/2026 05/29/2023 Procedures Procedure Name Priority Date/Time Associated Diagnosis Comments PAP SMEAR Routine 05/29/2023 12:00 AM EDT from Last 3 Months or Most Recently Relevant to Health Maintenance Results * Pap Smear (05/29/2023 12:00 AM EDT) Swab Cervical swab / Unknown us [facility] ORDERABLES Final Re sult EXTERNAL LAB from Last 3 Months or Most Recently Relevant to Health Maintenance Insurance [employer] Care Teams Cripple Worker Relationship Specialty Start Date End Date Rach Shen MD [address] [place] [address] PCP - General Family Medicine 04/22/23
--- OUTSIDE RECORDS SUMMARY | 2025-05-05 18:54 | XMS_ITS | Encounter Summary ---
Author Organization [facility] Address [address] [address] Care Team Providers Care Rehabilitation Assistant Name Role Phone Rach Shen MD Primary Care Provider [phone] Encounter Details Date Type Department Care Team (Late st Contact Info) Description 10/14/2023 [facility] Result Encounter [facility] External Department Unsolicited Lemuel Lindquist, DO [address] [place] [address] Social History Tobacco Use Types Packs/Day Years Used Date Smoking Tobacco: Never Assessed Comments Unknown Sex and Gender Information Value Date Recorded Sex Assigned at Not on file Legal Sex Female 6:54 PM EDT Gender Identity Not on file Sexual Orientation Not on file documented as of this encounter Plan of Treatment Upcoming Encounters Date Type Department Care Team (Late st Contact Info) Description 05/11/2026 10:00 AM EDT Procedure Visit [facility] [address] [phone] Jayla Hector PA [address] [place] [address] documented as of this encounter Procedures Procedure Name Priority Date/Time Associated Diagnosis Comments FL HYSTEROSALPINGOGRAM 9:47 AM EST documented in this encounter Results * FL HYSTEROSALPINGOGRAM (10/14/2023 9:47 AM EST) Anatomical Region Laterality Modality Other 10/14/2023 9:47 AM EST Narrative 10/14/2023 9:49 AM EST The [address] [address] Fluoroscopy Report Signed Patient: LUIS DEWITT MR#: [id number] : 1990 Acct:[id number] Age/Sex: 32 / F ADM Date: 10/14/23 Loc: LAB Attending Dr: Lemuel Lindquist D.O. Ordering Physician: Lemuel Lindquist D.O. Date of Service: 10/14/23 Procedure(s): FL Hysterosal cath placement Accession Number(s): [id number] cc: Rach Shen M.D.; Lemuel Lindquist D.O. The [address] [address] Patient Name: LUIS DEWITT MRN: [id number] date: 1990 Sex: F Assigned Patient Location: LAB Current Patient Location: Accession/Order Number: [id number] Exam Date: 10/14/2023 08:00 Report Date: 10/14/2023 09:47 At the request of: LEMUEL LINDQUIST Procedure: FL Hysterosal cath placement EXAMINATION: FL hysterosalpingography, FL Hysterosal cath placement HISTORY: Anovulation N97.0, Infertility N97.9 COMPARISON: No relevant comparison available. TECHNIQUE: Informed consent was obtained. A sterile vaginal speculum was introduced and, following cleansing of the cervix, a balloon-tipped catheter was inserted into the endometrial cavity. The procedure was then completed in the usual manner with water-soluble contrast. Standard level fluoroscopic mode of operation utilized. FINDINGS: FALLOPIAN TUBES: Patent fallopian tubes on the right. Occlusion of the left tube. ENDOMETRIAL CAVITY: No scarring, filling defects, or dilatation. OTHER: Negative. FL/FL Hysterosal cath placement IMPRESSION: Occlusion of the left fallopian tube Electronically authenticated by: KIKI PERERA Date: 10/14/2023 09:47 Dictated By: Kiki Perera M.D. Signed By: 10/14/2349 DD/ 6 TD/TT: Clamp Carrier Operator: Procedure Note Radiology, Radiologist, MD - 10/14/2023 [place] [address] Fluoroscopy Report Signed Patient: LUIS DEWITT MMR#: [id number] : 1990Acct:[id number] Age/Sex: 32 / FADM Date: 10/14/23 Loc: LAB Attending Dr: Lemuel Lindquist D.O. Ordering Physician: Lemuel Lindquist D.O. Date of Service: 10/14/23 Procedure(s): FL Hysterosal cath placement Accession Number(s): [id number] cc: Rach Shen M.D.; Lemuel Lindquist D.O. [place] [address] Patient Name: LUIS DEWITT MRN: [id number] date: 1990 Sex: F Assigned Patient Location: LAB Current Patient Location: Accession/Order Number: [id number] Exam Date: 10/14/2023 08:00 Report Date: 10/14/2023 09:47 At the request of: LEMUEL LINDQUIST Procedure: FL Hysterosal cath placement EXAMINATION: FL hysterosalpingography, FL Hysterosal cath placement HISTORY: Anovulation N97.0, Infertility N97.9 COMPARISON: No relevant comparison available. TECHNIQUE: Informed consent was obtained. A sterile vaginal speculum was introduced and, following cleansing of the cervix, a balloon-tippedcatheter was inserted into the endometrial cavity. The procedure was then completedin the usual manner with water-soluble contrast. Standard level fluoroscopicmode of operation utilized. FINDINGS: FALLOPIAN TUBES: Patent fallopian tubes on the right. Occlusion of theleft tube. ENDOMETRIAL CAVITY: No scarring, filling defects, or dilatation. OTHER: Negative. FL/FL Hysterosal cath placement IMPRESSION: Occlusion of the left fallopian tube Electronically authenticated by: KIKI PERERA Date: 10/14/2023 09:47 Dictated By: Kiki Perera M.D. Signed By:10/14/2349 DD/ 6 TD/TT: Clamp Carrier Operator: us Lemuel Lindquist DO [facility] Final Result documented in this encounter Visit Diagnoses Not on filedocumented in this encounter Care Teams Rehabilitation Assistant Relationship Specialty Start Date End Date Rach hSen MD [address] [place] [address] PCP - General Family Medicine 04/22/23 documented as of this encounter
--- OUTSIDE RECORDS SUMMARY | 2025-05-05 18:54 | XMS_ITS | Clinical Summary ---
Author Organization [facility] Address [id number] [address] [place] [address] Care Team Providers Care Veterinary Assistant Technician Name Role Phone Rach Shen MD Primary Care Provider Social History Tobacco Use Types Packs/Day Years Used Date Smoking Tobacco: Never Assessed Childcare Answer Date Recorded Childcare Unknown 03/04/2019 Employment Answer Date Recorded Employment Unknown 03/04/2019 Purpose - Life Answer Date Recorded Purpose and direction in life Unknown Comments Unknown Sex and Gender Information Value Date Recorded Sex Assigned at Not on file Legal Sex Female 11:45 AM EDT Gender Identity Not on file Sexual Orientation Not on file Plan of Treatment Health Maintenance Due Date Last Done Comments Depression Screening 2001 Tobacco Screening 2001 Adult BMI Screening 2007 DTaP,Tdap and Td Vaccines (1 - Tdap) 2008 Pap Smear 2010 Influenza Vaccine 05/24/2025 Medical Devices Not on file Insurance [employer] Care Teams Veterinary Assistant Technician Relationship Specialty Start Date End Date Rach Shen MD [address] [place] [address] PCP - General 02/04/18
--- OUTSIDE RECORDS SUMMARY | 2025-05-05 18:54 | XMS_ITS | Encounter Summary ---
Author Organization [facility] Address [address] [facility] [place] [address] Care Team Providers Care Direct Support Staff Name Role Phone Rach Shen MD Primary Care Provider [phone] Encounter Details Date Type Department Care Team (Late st Contact Info) Description 05/28/2023 Abstract [facility] [address] [place] [phone] Jayla Hector PA [address] [facility] [address] [place], [place] [id number] Social History Tobacco Use Types Packs/Day Years [...] Description 05/11/2026 10:00 AM EDT Procedure Visit TAHIR ORTIZ [address] [place] [phone] Jayla Hector PA [address] [facility] [address] [place], [facility] documented as of this encounter Visit Diagnoses Not on filedocumented in this encounter Care Teams Direct Support Staff Relationship Specialty Start Date End Date Rach Shen MD [address] [place] [facility] [place] [phone] PCP - General Family Medicine 04/22/23 documented as of this encounter
--- OUTSIDE RECORDS SUMMARY | 2025-05-05 18:54 | XMS_ITS | Encounter Summary ---
Author Organization [facility] Address [address] [facility] [place] [address] Care Team Providers Care Clinical Provider Trainer Name Role Phone Rach Shen MD Primary Care Provider [phone] Encounter Details Date Type Department Care Team (Late st Contact Info) Description 05/05/2025 Bamboo flowsheet [facility] [address] [facility] [facility] [address] [place] [phone] Jayla Hector PA [address] [facility] [address] [place], [facility] Social History Tobacco Use Types Packs/Day Years [...] Description 05/11/2026 10:00 AM EDT Procedure Visit [facility] [address] [facility] [place] [phone] Jayla Hector PA [address] [facility] [address] [place], [facility] documented as of this encounter Visit Diagnoses Not on filedocumented in this encounter Care Teams Clinical Provider Trainer Relationship Specialty Start Date End Date Rach Shen MD [address] [place] [phone] PCP - General Family Medicine 04/22/23 documented as of this encounter
--- OUTSIDE RECORDS SUMMARY | 2025-05-05 18:54 | XMS_ITS | Encounter Summary ---
Author Organization [facility] Address [address] [facility] [place] [address] Care Team Providers Care Trade Show Coordinator Name Role Phone Rach Shen MD Primary Care Provider [phone] Encounter Details Date Type Department Care Team (Late st Contact Info) Description 10/10/2023 Abstract [facility] [address] [place] [phone] Jimena Renae LPN [address] [facility] Social History Tobacco Use Types Packs/Day Years [...] AM EDT Procedure Visit [facility] [address] [place] [phone] Jayla Hector PA [address] [facility] [address] [place], [place] [phone] documented as of this encounter Visit Diagnoses Not on filedocumented in this encounter Care Teams Trade Show Coordinator Relationship Specialty Start Date End Date Rach Shen MD [address] [place] [phone] PCP - General Family Medicine 04/22/23 documented as of this encounter
--- OUTSIDE RECORDS SUMMARY | 2025-05-05 18:55 | XMS_ITS | CCD ---
Author Organization [facility] Care Team Providers Care Pilot Control Operator Name Role Phone DR LEMUEL JOHNSON Attending Unavailable ELIZABETH, DR HDEZ Consulting Unavailable ELIZABETH, DR HDEZ Admitting Unavailable SRIKANTH, DR RACH Wadsworth Primary Care Unavailable SRIKANTH, DR RACH Wadsworth Attending Unavailable SRIKANTH, DR RACH Wadsworth Consulting Unavailable SRIKANTH, DR RACH Wadsworth Primary Care Unavailable SRIKANTH, DR RACH Wadsworth Admitting Unavailable MD Rach Duke Primary Care Provider [phone] DO Leon Casey Attending Provider [facility]ela [facility] Attending Unavailable Carmela [facility] Admitting Unavailable Rach Duke Primary Care Unavailable Rach Duke MD Primary Care Provider [phone] Medications Current Medications Medication Drug Class(es) Dates Sig (Normalized) Sig (Original) escitalopram 10 mg oral tablet (4 sources) Serotonin Reuptake Inhibitor Start: 08-13-2024 take 1 tablet by mouth once daily escitalopram (Lexapro) 10 MG tablet Take 10 mg by mouth Daily 08/13/2024 Active Start: 06-20-2024 End: 08-10-2024 take 1 tablet by mouth once daily Escitalopram Oxalate (Lexapro) 10 mg tablet Active 10 MG PO Daily August 10, 2024 2:31pm medroxyPROGESTERone acetate 10 mg oral tablet (3 sources) Progestin Start: 04-22-2023 take 1 tablet by mouth in the morning medroxyPROGESTERone (Provera) 10 MG tablet Indications: Irregular menses , Menorrhagia with irregular cycle , Migraine without aura and without status migrainosus, not intractable Take 1 tablet (10 mg) by mouth in the morning. Take 1 tablet by mouth daily for 7 days beginning on day 16 of the menstrual cycle.. 14 tablet 04/22/2023 Active SUMAtriptan 100 mg oral tablet (8 sources) Serotonin-1b and Serotonin-1d Receptor Agonist Start: 12-25-2023 End: 08-13-2024 Sumatriptan Succinate 100 mg tablet Active 0 .ROUTE .COMPLEX August 13, 2024 4:29pm TAKE ONE TABLET BY MOUTH NEEDED FOR MIGRAINE Start: 11-16-2023 End: 12-25-2023 Sumatriptan Succinate 100 mg tablet Discontinued 50 MG PO Every 2 hours as needed November 16, 2023 12:00am December 25, 2023 8:36am Start: 04-19-2023 SUMAtriptan (I mitrex) 100 MG tablet TAKE ONE TABLET BY MOUTH NEEDED FOR MIGRAINE 04/19/2023 Active Completed/Discontinued Medications Medication Drug Class(es) Dates Sig (Normalized) Sig (Original) cyclobenzaprine hydrochloride 10 mg oral tablet (1 source) Muscle Relaxant Start: 11-16-2023 End: 01-02-2024 take 1 tablet by mouth three times daily Cyclobenzaprine 10 mg tablet Discontinued 10 MG PO Three times daily 12 04November 16, 2023 12:00am January 02, 2024 8:00am letrozole 2.5 mg oral tablet (4 sources) Aromatase Inhibitor Start: 11-16-2023 End: 06-18-2024 Letrozole (Femara) 2.5 mg tablet Discontinued 7.5 MG PO Daily as needed November 16, 2023 12:00am June 18, 2024 12:42pm begin between days 2 and 5 of mentrual cycle Start: 10-30-2023 take 3 tablets by [facility] once daily, then take 3-7 tablets by mouth once letrozole (Femara) 2.5 MG chemo tablet TAKE 3 TABLETS (7.5 MG TOTAL) BY MOUTH DAILY FOR 5 DAYS. TAKE DAYS 3-7 OF CYCLE 10/30/2023 Active methylPREDNISolone 4 mg oral tablet (1 source) Corticosteroid Start: 11-16-2023 End: 01-02-2024 take 1 tablet by mouth once Methylprednisolone (Medrol (Oscar)) 4 mg tablets,dose pack Discontinued 0 PO per package directions November 16, 2023 12:00am January 02, 2024 8:00am PO PER PKG DIR for 6 days Problems Active Problems Problem Classification Problem Date Documented Da te Episodic/Chronic Anxiety disorders (1 source) Mixed anxiety and depressive disorder; Translations: [Other specified anxiety disorders] 06-23-2024 Chronic Malaise and fatigue (2 sources) Fatigue; Translations: [Other fatigue] 11-06-2024 Episodic Nonmalignant breast conditions (2 sources) Pain of breast; Translations: [Mastodynia] 11-06-2024 Episodic Other nutritional; endocrine; and metabolic disorders (1 source) Weight increased; Translations: [Abnormal weight gain] 11-06-2024 Episodic Other nutritional; endocrine; and metabolic disorders (1 source) Abnormal weight gain; Translations: [Abnormal weight gain] 11-06-2024 Episodic Unclassified (2 sources) CONTACT W/AND (SUSP) EXPOS [...] 04-25-2023 ALT [Catalytic activity/Vol] 17 U/L Normal 7-52 [facility] Comment on above: Order Comment: Which is this, the Source or the Person with the Exposure?: EXPOSURE Source Medical Record: [id number] Exposed Result Comment: PERF ORMED BY: [facility] [address] [place] [address] PATHOLOGIST AUTOMATIC PRESSER OSVALDO CRYSTAL M.D. Performed By: #### A LT #### [facility] [address] [place] [address] #### HIV SCREEN, HCV RX PCR, HBSAB, HBSAG #### [facility] , Alanine aminotransferase [En zymatic activity/volume] in Serum or PlasmaOrdered By: Leon Casey on 04-25-2023 ALT [Catalytic activity/Vol] 17 U/L [facility] HIV 1/O/2 Antigen/Antibodyon 04-25-2023 HIV Screen 4th Generation Non-Reactive Normal Non Reactive [facility] Comment on above: Order Comment: Which is this, the Source or the Person with the Exposure?: EXPOSURE Source Medical Record: [id number] Exposed Result Comment: HIV Negative HIV-1/HIV-2 antibodies and HIV-1 p24 antigen were NOT detected. There is no laboratory evidence of HIV infection. PERFORMED BY: [place] [phone] PATHOLOGIST AUTOMATIC PRESSER OSVALDO CRYSTAL M.D. Performed By: #### A LT #### [facility] [address] [place] [address] #### HIV SCREEN, HCV RX PCR, HBSAB, HBSAG #### [facility] , Hep C Ab wRfx to Qnt PCRon 0 04-25-2023 Hepatitis C Virus Antibody Non-Reactive Normal Non Reactive [facility] Comment on above: Order Comment: Which is this, the Source or the Person with the Exposure?: EXPOSURE Source Medical Record: [id number] Exposed Performed By: #### A LT #### [facility] [address] [place] [address] #### HIV SCREEN, HCV RX PCR, HBSAB, HBSAG #### [facility] , Interpretation Hepatitis C Normal . [facility] Comment on above: Order Comment: Which is this, the Source or the Person with the Exposure?: EXPOSURE Source Medical Record: [id number] Exposed Result Comment: Not infected with HCV unless early or acute infection is suspected (which may be delayed in an immunocompromised individual), or other evidence exists to indicate HCV infection. Performed By: #### A LT #### [facility] [address] [place] [address] [place] #### HIV SCREEN, HCV RX PCR, HBSAB, HBSAG #### [facility] , Hepatitis B Surface Antibody on 04-25-2023 Hepatitis B Surface Antibody Reactive Normal . [facility] Comment on above: Order Comment: Which is this, the Source or the Person with the Exposure?: EXPOSURE Source Medical Record: [id number] Exposed Result Comment: Non Reactive: Inconsistent with immunity, less than 10 mIU/mL Reactive: Consistent with immunity, greater than 9.9 mIU/mL Performed By: #### A LT #### [place] [address] [place] #### HIV SCREEN, HCV RX PCR, HBSAB, HBSAG #### [facility] , Hepatitis B Surface Antigeno n 04-25-2023 HBsAg Screen Negative Normal Negative [facility] Comment on above: Order Comment: Which is this, the Source or the Person with the Exposure?: EXPOSURE Source Medical Record: [id number] Exposed Result Comment: Perf ormed at: - [facility] [address] [id number] Jacquard Fixer: Shai Marie PhD, Phone: [phone] Performed By: #### A LT #### [place] [address] [place] #### HIV SCREEN, HCV RX PCR, HBSAB, HBSAG #### [facility] , PAP ONLYon 12-05-2021 . . Normal [facility] Comment on above: Performed By: #### [id number] #### [facility] [address] [address] [address] Vargas Joe DIAGNOSIS: Comment Normal [facility] Comment on above: Result Comment: NEGA TIVE FOR INTRAEPITHELIAL LESION OR MALIGNANCY. Performed By: #### [id number] #### [facility] [address] [place] [address] Dr. Vargas Joe Methodology: Comment Normal [facility] Comment on above: Result Comment: This liquid based ThinPrep(R) pap test was screened with the use of an image guided system. Performed By: #### [id number] #### [facility] [address] [place] [address] Dr. Vargas Joe Note: Comment Normal [facility] Comment on above: Result Comment: The Pap smear is a screening test designed to aid in the detection of premalignant and malignant conditions of the uterine cervix. It is not a diagnostic procedure and should not be used as the sole means of detecting cervical cancer. Both false-positive and false-negative reports do occur. . Performed By: #### [id number] #### [facility] [address] [place] [address] Dr. Vargas Joe Performed by: Comment Normal [facility] Comment on above: Result Comment: Denise Medellin, Physical Therapy Assistant (ASCP) Performed By: #### 4 [id number] #### [facility] [address] [place] [address] Dr. Vargas Joe Specimen adequacy: Comment Normal [facility] Comment on above: Result Comment: Sati sfactory for evaluation. Endocervical and/or squamous metaplastic cells (endocervical component) are present. Performed By: #### 4 [id number] #### [facility] [address] [place] [address] Dr. Vargas Joe [facility]24 SARS-CoV-2 (COVID-19) RNA LILIANA+probe Ql (Unsp spec) Detected Critically abnormal NOT DETECTED [facility] Comment on above: Result Comment: This test is not yet approved or cleared by the [place] FDA. When there are no FDA-approved or cleared tests available, and other criteria are met, FDA can make tests available under an emergency access mechanism called an Emergency Use Authorization (EUA). The EUA for this test is supported by the [place] of Health and Human Service's (HHS's) declaration [...] used). Performed By: #### C [facility] #### [facility] [address] [place] [address] Dr. Vargas Joe Auth for Release of Medical Recordson 03-10-2020 Auth for Release of Medical Records [id number] Normal [facility] Vital Signs Date Time Vital Sign Value Performing Clinician Frank cast 05-05-2025 13:12-0400 Body mass index (BMI) [Ratio] 32.26 kg/m2 Jayla CIFUENTES Work Phone: [facility] 05-05-2025 13:12-0400 Body weight 93.44 kg Jayla CIFUENTES Work Phone: [facility] 05-05-2025 13:12-0400 Diastolic blood pressure 70 mm[Hg] Jayla CIFUENTES Work Phone: [facility] 05-05-2025 13:12-0400 Systolic blood pressure 122 mm[Hg] Jayla CIFUENTES Work Phone: [facility] 11-06-2024 09:44-0500 Body height 172.72 cm [facility] 11-06-2024 09:44-0500 Body mass index (BMI) [Ratio] 30.2 kg/m2 [facility] 11-06-2024 09:44-0500 Body weight 90.26 kg [facility] 11-06-2024 09:44-0500 Diastolic blood pressure 70 mm[Hg] [facility] 11-06-2024 09:44-0500 Heart rate 80 /min [facility] 11-06-2024 09:44-0500 Systolic blood pressure 120 mm[Hg] [facility] Encounters Encounter Date Encounter Type Care Provider Facility Start: 05-05-2025 End: 05-05-2025 Bamboo flowsheet Jayla CIFUENTES Work Phone: [facility] Start: 05-05-2025 End: 05-05-2025 Bamboo flowsheet Jayla CIFUENTES Work Phone: [facility] Start: 05-05-2025 End: 05-05-2025 Patient encounter procedure Jayla CIFUENTES Work Phone: [facility] Start: 05-05-2025 End: 05-05-2025 Periodic preventive med est patient 18-39 yrs Jayla CIFUENTES Work Phone: [facility] Comment on above: Well woman exam with routine gynecological exam Start: 11-06-2024 End: 11-06-2024 ambulatory [facility] Work Phone: Start: 11-06-2024 End: 11-06-2024 [facility] Work Phone: Start: 01-02-2024 Patient encounter status [facility] Start: 04-25-2023 End: 04-25-2023 ambulatory MD Rach Duke Work Phone: [facility] Work Phone: Start: 04-25-2023 End: 04-25-2023 Patient encounter procedure MD Rach Duke Work Phone: [facility] [address] Work Phone: Start: 11-28-2021 End: 11-28-[address] LEMUEL JOHNSON Facility:[facility] Start: 10-17-2021 End: 10-17-[address] RACH DUKE Facility:[facility] Procedures Date Procedure Procedure Detail Performing Clinician Start: 05-29-2023 Microscopic observat ion [Identifier] in Cervix by Cyto stain Jayla CIFUENTES Work Phone: Plan of Treatment Date Care Activity Detail Author Start: 05-29-2026 Screening for malign ant neoplasm of cervix [facility] Start: 05-11-2026 End: 05-11-2026 Patient encounter procedure 05/11/2026 10:00 AM EDT Procedure Visit TAHIR ORTIZ [address] [place] [phone] Jayla Hector PA [address] [place] [address] TAHIR [place] O[facility]HELSEA Start: 05-24-2025 Influenza vaccination Influenza Vacc ine (#1) [facility] Start: 05-05-2025 End: 05-05-2025 Patient encounter procedure 05/05/2025 1:00 PM EDT Office Visit TAHIR ORTIZ [address] [facility] [facility] [place] [phone] Jayla Hector PA [address] [place], [place] [id number] [facility] Comment on above: Arrived Start: 04-25-2023 [facility] Start: 2019 Screening for malign ant neoplasm of cervix HPV/Cotest [facility] Cytology Cervical or vaginal smear or scraping study Pap Smear Pathology and Cytology Routine Well woman exam with routine gynecological exam Ordered: 05/05/2025 [facility] Work Phone: Comment on above: Ordered: 05/05/2025 Estrogen [Mass/volum e] in Serum or Plasma [facility] Human papilloma viru s DNA [Presence] in Unspecified specimen by Probe with amplification HPV DNA probe, amplified Microbiology Routine Well woman exam with routine gynecological exam Ordered: 05/05/2025 [facility] Comment on above: Ordered: 05/05/2025 Progesterone [Mass/volume] in Serum or Plasma [facility] Immunizations Immunization Date Immunization Notes Care Provider Fa cility 07-23-2023 influenza virus vacc ine, unspecified formulation Jayla CIFUENTES Work Phone: [facility] Payers Date Payer Category Payer Self-pay 2023 Worker's Compensation [id number] 2021 [facility] er [id number] 1989 Unknown [id number] 1989 Unknown [id number] 1959 Unknown [id number] Unknown [id number] Unknown Sincere /BS [id number] Social History Date Type Detail Facility Tobacco smoking status NHIS Unknown if ever smoked [facility] Work Phone: Start: 1990 Sex Assigned At Female F [facility] Start: 11-16-2023 Tobacco smoking status NHIS Never smoked tobacco (finding) [facility] Start: 11-06-2024 Sex Female (finding) [facility] Tobacco smoking status NHIS Tobacco smoking consumption unknown [facility] Start: 1990 Sex assigned at Not on file [facility] Gender identity Not on file [facility] History of Present illness Narrative 05-05-2025 VANE Chavez - 05/05/2025 1:00 PM EDT Note Date & Type Note Facility 05-05-2025 History of Presen t illness Narrative Reason for Appointment: Patient ID: Alexi Dewitt [...] beginning on day 16 of the menstrual cycle. SUMAtriptan [...] nursing note reviewed. Exam conducted with a grounds manager present. Vitals: Estimated body mass index is 28.52 kg/m as calculated from the following: Height as [...] of: VANE Chavez documented in this encounter [facility] Evaluation note Note Date & Type Note Facility Evaluation note No assessment information availa [facility] Work Phone: Evaluation note Note Date & Type Note Facility Evaluation note Diagnosis Onset Date Resolution Breast pain acute October 9:41am Fatigue acute November 06, 2024 9:41am Weight gain acute October 9:41am [facility] Work Phone: Evaluation note Note Date & Type Note Facility Evaluation note Diagnosis Well woman exam with routine gynecological exam Routine gynecological examination documented in this encounter [facility] Summary Purpose Family History Relationship Condition Age at Onset Recorded Date/T luciana father Diabetes mellitus Unknown Dissection of carotid artery Unknown Advance Directives Advance Directive Response Recorded Date/ Time Advance Directives No April 25 12:07pm Advance Directive Response Recorded Date/ Time Advance Directives No April 25 11:07am Chief Complaint and Reason for Visit Chief Complaint exposure Chief Complaint Admit Date Medical Concerns November 06, 2024 9:41am Reason for Visit Admit Date Breast pain November 06, 2024 9:41am Fatigue November 06, 2024 9:41am Weight gain November 06, 2024 9:41am Additional Source Comments INFORMATION SOURCE (unrecogn ized section and content) DATE CREATED AUTHOR 03/10/2020 Marinelli Broome [facility] DATE CREATED AUTHOR AUTHOR'S ORGANIZ ATION 09/13/2022 [facility] DATE CREATED AUTHOR AUTHOR'S ORGANIZ ATION 11/23/2023 [facility] Care Teams (unrecognized sec tion and content) Team Status: Active Member Role Status Dates Rach Duke MD Primary Care Provider Active Team Status: Inactive Member Role Status Dates Rach Duke MD Primary Care Provider Active Leon Casey DO [facility] Attending Provider Active Team Status: Inactive Member Role Status Dates Rach Duke MD Primary Care Provide r, Attending Provider Active Start: November 06, 2024 End: November 06, 2024 Pilot Control Operator Relationship Specialty Start Date End Date Rach Duke MD [address] [place] [phone] PCP - General Family Medicine 04/22/23 Pilot Control Operator Relationship Specialty Start Date End Date Rach Duke MD [address] [place] [phone] PCP - General Family Medicine 04/22/23 Goals (unrecognized section and content) Goals may be documented in a n alternate sectionGoals may be documented in an alternate section Reason for Visit (unrecogniz ed section and content) Reason Comments Gynecologic Exam FOR RECORDS PERTAINING TO PATIENTS WHO ARE [...] BE BASED ON THE PRIMARY CLINICAL RECORDS. [facility] provides no warranty or guarantee of the accuracy or completeness of information in this document.
[2025-05-10 14:08] LABS: Age Gdln ACOG Testing Note (.); IGP, Aptima HPV, rfx 16/18,45 Note (.)
== END 2025-05-05 18:52 | disposition home or self-care (01) ==
LOC: LAB 18:51
PROVIDERS: PCP Family Medicine; Visit Provider Physician Assistant
DX: Z01.419 Encounter for gynecological examination (general) (routine) without abnormal findings (principal)
CPT/HCPCS: 87624; 88175